=== PATIENT | female | born 1995 | race Hispanic/Latino ===

== ENCOUNTER 2018-09-16 23:49 | Emergency (ER) | payer MEDICAID, SELFPAY ==
[2018-09-17] MEDS ORDERED: Dexamethasone 10 MG/ML VIAL ONE (00:40)
[2018-09-17] MEDS ORDERED: Acetaminophen 500 MG TAB ONE (00:40)
[2018-09-17] MEDS ORDERED: Bicillin LA 1.2 MILLION UNITS/2 ML SYRINGE ONE (01:27)
== END 2018-09-17 01:39 | disposition home or self-care (01) ==
LOC: ERS 23:49
DX: J02.0 Streptococcal pharyngitis (principal)
CPT/HCPCS: 87430; 87804; 96372; J0561; J1100

== ENCOUNTER 2019-05-19 21:14 | Emergency (ER) | payer OTHER, SELFPAY ==
[2019-05-19] MEDS ORDERED: cefTRIAXone\\ROCEPHIN 2 GM VIAL ONE (21:53)
[2019-05-19] MEDS ORDERED: Ibuprofen 200 MG TAB ONE (21:53)
[2019-05-19] MEDS ORDERED: Acetaminophen 325 MG TAB ONE (21:53)
[2019-05-19] MEDS ORDERED: Ondansetron PF 4 MG/2 ML Vial ONE (21:55)
[2019-05-19 22:06] LABS: Hemoglobin 13.5 g/dL (12.0-16.0); Mean Corpuscular HGB CONC 33.5 g/dL (32.0-36.0); Mean Corpuscular Hemoglobin 28.6 pg (27.0-31.0); Mean Corpuscular Volume 85.6 fL (78.0-98.0); Mean Platelet Volume 8.7 fL (7.4-10.4); Platelet Count 174 thou/uL (130-400); RBC Distribution Width 13.1 % (11.5-14.5); Red Blood Cell (RBC) Count 4.71 mill/uL (4.20-5.40); White Blood Cell (WBC) Count 5.9 thou/uL (4.8-10.8)
[2019-05-19 22:15] LABS: ALT (SGPT) 14 U/L (8-55); AST (SGOT) 17 U/L (5-34); Albumin 4.3 g/dL (3.5-5.0); Alkaline Phosphatase 74 U/L (40-110); Anion Gap 17 mmol/L (10-20); BUN (Urea Nitrogen) 18 mg/dL (7.0-18.7); Bilirubin, Total 1.1 mg/dL (0.2-1.2); Calc. Creatinine Clearance 0 mL/min (70-130); Calcium 9.2 mg/dL (7.8-10.44); Carbon Dioxide 19 mmol/L (22-29); Chloride 103 mmol/L (98-107); Estimated GFR-MDRD Greater than 90; Globulin 3.2 g/dL (2.4-3.5); Glucose 97 mg/dL (70-105); Potassium 3.5 mmol/L (3.5-5.1); Protein, Total 7.5 g/dL (6.0-8.3); Sodium 135 mmol/L (136-145)
[2019-05-19 22:31] LABS: Band 19 % (5-11); Lymphocytes 9 % (21-51); MDiff Complete? YES; Monocytes 7 % (0-10); Neutrophil 65 % (42-75); RBC Morphology Normal
[2019-05-19 23:26] LABS: Bacteria/HPF None Seen HPF (None Seen); Bilirubin Negative (Negative); Blood, Urine Negative (Negative); Clarity Clear (Clear); Glucose, Urine (Dipstick) Normal (Negative); Leukocyte Negative Leu/uL (Negative); Nitrite Negative (Negative); Protein, Urine (Dipstick) 70 mg/dL (Neg-Trace); Squamous Epithelial 0-3 HPF (0-3); Urobilinogen Normal mg/dL (Less than 2); WBC/HPF 0-3 HPF (0-3)
== END 2019-05-20 00:08 | disposition home or self-care (01) ==
LOC: ERS 21:14
DX: N12 Tubulo-interstitial nephritis, not specified as acute or chronic (principal)
CPT/HCPCS: 80053; 81003; 81015; 83605; 85025; 87040; 87086; 87804; 96361; 96365; 96375; J0696; J2405

== ENCOUNTER 2023-04-23 13:21 | Emergency (ER) | payer OTHER ==
[2023-04-23] MEDS ORDERED: Bicillin LA 1.2 MILLION UNITS/2 ML SYRINGE ONE (14:38)
== END 2023-04-23 15:04 | disposition home or self-care (01) ==
LOC: ERS 13:21
DX: J02.0 Streptococcal pharyngitis (principal)
CPT/HCPCS: 87430; 96372; 99283; J0561

== ENCOUNTER 2025-06-10 17:18 | Emergency (ER) | payer OTHER, SELFPAY ==
[2025-06-10 19:58] LABS: Pregnancy Test - Urine (BHCG) Negative (Negative); Pregu Control Background? CLEAR/WHITE (CLR/WHITE); Pregu Control Bar Appear? YES (CONTROL BAR)
[2025-06-10 19:59] LABS: CAUTI Indications for Culture Pelvic or flank pain; Glucose, Urine (Dipstick) Normal (Negative); Leukocyte 250 Leu/uL (Negative); Protein, Urine (Dipstick) 10 mg/dL (Neg-Trace); RBC/HPF 0-3 HPF (0-3); Specific Gravity, Urine 1.025 (1.002-1.036)
[2025-06-10 20:00] LABS: Bacteria/HPF 1+ HPF (None Seen)
[2025-06-10 20:01] LABS: Urine Culture Reflex Yes Yes
[2025-06-10] MEDS ORDERED: Ketorolac Tromethamine 30 MG (1 mL) VIAL ONE (20:27)
== END 2025-06-10 21:56 | disposition home or self-care (01) ==
LOC: ERS 17:18
DX: M54.6 Pain in thoracic spine (principal); R68.84 Jaw pain
CPT/HCPCS: 70486; 71045; 72128; 81001; 81025; 87086; 96372; J1885